=== PATIENT | female | born 1990 | race Caucasian/White ===

== ENCOUNTER 2019-08-07 00:23 | Emergency (ER) | payer SELFPAY ==
[~2019-08-07] VITALS: Ht 147.3 cm; Wt 62.1 kg
[2019-08-07 00:31] VITALS: Ht 147.3 cm; Wt 62.1 kg
[2019-08-07 01:00] VITALS: BP 140/83
== END 2019-08-07 01:00 | disposition home or self-care (01) ==
LOC: ED 00:23
DX: S63.602A Unspecified sprain of left thumb, initial encounter (principal); Z90.89 Acquired absence of other organs; Z98.890 Other specified postprocedural states; W23.0XXA Caught, crushed, jammed, or pinched between moving objects, initial encounter; Y93.89 Activity, other specified; Y92.89 Other specified places as the place of occurrence of the external cause; Y99.8 Other external cause status
CPT/HCPCS: A4570